=== PATIENT | female | born 1945 | race Caucasian/White ===

== ENCOUNTER 2017-04-06 16:21 | Inpatient (IN) | payer SELFPAY ==
[~2017-04-06] VITALS: Ht 157.5 cm; Wt 62.6 kg
[2017-04-06 17:28] LABS: PLATELET COUNT 214 x10^3mcL (130-400); RED CELL DISTRIBUTION WIDTH 13.9 % (11.5-14.5)
[2017-04-06 17:30] LABS: BASOPHIL % 0 % (0-2)
[2017-04-06 17:35] LABS: UA SPECIFIC GRAVITY >=1.030 (1.005-1.035); microscopic required? YES; urine erythrocyte NEGATIVE (NEGATIVE)
[2017-04-06 17:41] LABS: CALCIUM 9.4 mg/dL (8.5-10.1); CHLORIDE SERUM 103 mmol/L (98-107); CREATININE SERUM 0.8 mg/dL (0.6-1.0); GLUCOSE SERUM 225 mg/dL (74-106); POTASSIUM SERUM 3.7 mmol/L (3.5-5.1); SODIUM SERUM 138 mmol/L (136-145)
[2017-04-06 17:55] LABS: ALBUMIN 3.7 g/dL (3.4-5.0); ALKALINE PHOSPHATASE 107 U/L (46-116); ALT/SGPT 140 U/L (14-59); AST/SGOT 217 U/L (15-37); BILIRUBIN TOTAL 1.5 mg/dL (0.20-1.00); TOTAL PROTEIN, SERUM 7.3 g/dL (6.4-8.2)
[2017-04-06 18:55] LABS: LIPASE 14838 IU/L (73-393)
[2017-04-06] MEDS ORDERED: GLUCOPHAGE XR500 MG PO (20:20)
[2017-04-06 20:52] VITALS: BP 130/68
[2017-04-06 20:56] VITALS: Ht 157.5 cm; Wt 62.6 kg
[2017-04-06 21:45] LABS: MAGNESIUM 2.4 mg/dL (1.8-2.4)
[2017-04-06 21:51] LABS: T3 TOTAL 1.26 ng/mL
[2017-04-06 21:52] LABS: CHOLESTEROL/HDL RATIO 5.6; FREE T4 1.33 ng/dL (0.76-1.46); FREE THYROXINE INDEX 3.8 ug/dL (1.4-4.5); T4(THYROXINE) 11.3 ug/dL (4.7-13.3)
[2017-04-07 07:45] LABS: BASOPHIL % 0.4 % (0-2); PLATELET COUNT 171 x10^3mcL (130-400); RED CELL DISTRIBUTION WIDTH 13.6 % (11.5-14.5)
[2017-04-07 08:27] LABS: CALCIUM 8.1 mg/dL (8.5-10.1); CARBON DIOXIDE 23.2 mmol/L (21-32); CHLORIDE SERUM 111 mmol/L (98-107); CREATININE SERUM 0.8 mg/dL (0.6-1.0); GLUCOSE SERUM 138 mg/dL (74-106); POTASSIUM SERUM 3.9 mmol/L (3.5-5.1); SODIUM SERUM 146 mmol/L (136-145)
[2017-04-07 09:19] VITALS: BP 117/51
[2017-04-07 14:40] VITALS: BP 110/50
[2017-04-07 16:28] VITALS: BP 112/53
[2017-04-07 21:25] VITALS: BP 113/57
[2017-04-08 05:27] VITALS: BP 125/53
[2017-04-08 06:41] LABS: BASOPHIL % 0.4 % (0-2); PLATELET COUNT 151 x10^3mcL (130-400); RED CELL DISTRIBUTION WIDTH 13.9 % (11.5-14.5)
[2017-04-08 07:03] LABS: ALKALINE PHOSPHATASE 113 U/L (46-116); ALT/SGPT 399 U/L (14-59); AST/SGOT 244 U/L (15-37); BILIRUBIN TOTAL 1.1 mg/dL (0.20-1.00); CALCIUM 8.3 mg/dL (8.5-10.1); CARBON DIOXIDE 23.8 mmol/L (21-32); CHLORIDE SERUM 107 mmol/L (98-107); CREATININE SERUM 0.8 mg/dL (0.6-1.0); GLUCOSE SERUM 145 mg/dL (74-106); LIPASE 1146 IU/L (73-393); POTASSIUM SERUM 3.5 mmol/L (3.5-5.1); SODIUM SERUM 141 mmol/L (136-145)
[2017-04-08 07:10] LABS: ALBUMIN 2.5 g/dL (3.4-5.0); TOTAL PROTEIN, SERUM 5.8 g/dL (6.4-8.2)
[2017-04-08 09:13] VITALS: BP 104/41
[2017-04-08 13:29] VITALS: BP 141/63
[2017-04-08 17:34] VITALS: BP 138/60
[2017-04-08 22:29] VITALS: BP 146/66
[2017-04-09 06:21] VITALS: BP 140/54
[2017-04-09 06:24] LABS: CALCIUM 8.3 mg/dL (8.5-10.1); CARBON DIOXIDE 24.9 mmol/L (21-32); CHLORIDE SERUM 109 mmol/L (98-107); CREATININE SERUM 0.7 mg/dL (0.6-1.0); GLUCOSE SERUM 111 mg/dL (74-106); POTASSIUM SERUM 3.4 mmol/L (3.5-5.1); SODIUM SERUM 145 mmol/L (136-145)
[2017-04-09 06:46] LABS: BASOPHIL % 0.6 % (0-2); PLATELET COUNT 160 x10^3mcL (130-400); RED CELL DISTRIBUTION WIDTH 13.4 % (11.5-14.5)
[2017-04-09 08:30] VITALS: BP 148/58
[2017-04-09 14:15] VITALS: BP 145/68
[2017-04-09 18:09] VITALS: BP 134/61
[2017-04-09 20:54] VITALS: BP 128/51
[2017-04-10 05:34] VITALS: BP 123/48
[2017-04-10 07:23] VITALS: BP 118/57
[2017-04-10 18:10] VITALS: BP 132/53
[2017-04-10 22:32] VITALS: BP 126/61
[2017-04-11 06:21] LABS: BASOPHIL % 0.3 % (0-2); PLATELET COUNT 180 x10^3mcL (130-400); RED CELL DISTRIBUTION WIDTH 13.8 % (11.5-14.5)
[2017-04-11 06:36] VITALS: BP 161/70
[2017-04-11 06:43] LABS: ALKALINE PHOSPHATASE 94 U/L (46-116); ALT/SGPT 173 U/L (14-59); AST/SGOT 47 U/L (15-37); BILIRUBIN DIRECT 0.21 mg/dL (0.0-0.2); BILIRUBIN TOTAL 0.5 mg/dL (0.20-1.00); CALCIUM 8.5 mg/dL (8.5-10.1); CARBON DIOXIDE 23.8 mmol/L (21-32); CHLORIDE SERUM 103 mmol/L (98-107); CREATININE SERUM 0.6 mg/dL (0.6-1.0); GLUCOSE SERUM 100 mg/dL (74-106); POTASSIUM SERUM 3.3 mmol/L (3.5-5.1); SODIUM SERUM 140 mmol/L (136-145); TOTAL PROTEIN, SERUM 6.3 g/dL (6.4-8.2)
[2017-04-11 06:45] LABS: ALBUMIN 2.5 g/dL (3.4-5.0)
[2017-04-11 09:09] VITALS: BP 148/64
[2017-04-11 16:58] VITALS: BP 138/76
[2017-04-11 21:59] VITALS: BP 172/76
[2017-04-11 22:22] VITALS: BP 133/60
[2017-04-12 05:43] VITALS: BP 139/62
[2017-04-12 06:52] LABS: CALCIUM 8.2 mg/dL (8.5-10.1); CARBON DIOXIDE 26.6 mmol/L (21-32); CHLORIDE SERUM 107 mmol/L (98-107); CREATININE SERUM 0.5 mg/dL (0.6-1.0); GLUCOSE SERUM 102 mg/dL (74-106); POTASSIUM SERUM 3.2 mmol/L (3.5-5.1); SODIUM SERUM 143 mmol/L (136-145)
[2017-04-12 07:05] LABS: BASOPHIL % 0.6 % (0-2); PLATELET COUNT 181 x10^3mcL (130-400); RED CELL DISTRIBUTION WIDTH 13.7 % (11.5-14.5)
[2017-04-12 10:06] VITALS: BP 145/121
[2017-04-12 10:08] VITALS: BP 155/122
[2017-04-12] MEDS ORDERED: COL100 PO (12:23)
[2017-04-12] MEDS ORDERED: APAP500 MG PO (13:01)
[2017-04-12] MEDS ORDERED: GLUCOPHAGE XR500 MG PO (13:03)
== END 2017-04-12 17:40 | disposition home or self-care (01) | DRG 853 ==
LOC: ED 16:21 → MU 20:04 → DU 20:04 → EDBD 20:04 → DU 20:44 → MU 04-10 13:50
PROVIDERS: Emergency Medicine; Family Medicine; Student in an Organized Health Care Education/Training Program; Surgery; ADMIT Family Medicine
PROC: 0FB40ZZ Excision of Gallbladder, Open Approach (ICD-10-PCS; 2017-04-09)
PROC: BF141ZZ Fluoroscopy of Gallbladder, Bile Ducts and Pancreatic Ducts using Low Osmolar Contrast (ICD-10-PCS; 2017-04-09)
PROC: 0FJ44ZZ Inspection of Gallbladder, Percutaneous Endoscopic Approach (ICD-10-PCS; principal; 2017-04-09 07:30)
PROC: 0FT40ZZ Resection of Gallbladder, Open Approach (ICD-10-PCS; 2017-04-11)
DX: A41.9 Sepsis, unspecified organism (principal); E43 Unspecified severe protein-calorie malnutrition; N17.0 Acute kidney failure with tubular necrosis; K85.10 Biliary acute pancreatitis without necrosis or infection; E87.2 Acidosis; K81.2 Acute cholecystitis with chronic cholecystitis; E11.65 Type 2 diabetes mellitus with hyperglycemia; R65.20 Severe sepsis without septic shock; E80.6 Other disorders of bilirubin metabolism; E78.5 Hyperlipidemia, unspecified; Z80.3 Family history of malignant neoplasm of breast; Z88.2 Allergy status to sulfonamides
CPT/HCPCS: 82962; 83880; 84439; 94150; 97110-GP; 97116-GP; 97530-GP; C1887; C9113; J0330; J1885; J2175; J2250; J2270; J2405; J2543; J2704; J2710; J3010; J3490; J7030; Q0092; Q9967

== ENCOUNTER → 2017-04-20 | Outpatient (CLI) | payer MEDICAID ==
[~2017-04-20] MED LIST: APAP/HYDROCODON1 T13 PO; APAP500 MG PO; COL100 PO; GLUCOPHAGE XR500 MG PO; LEVOFLOXACIN250 MG PO; LIPI10 PO
== END | disposition home or self-care (01) ==
LOC: US 15:03
PROC: B54DZZZ Ultrasonography of Bilateral Lower Extremity Veins (ICD-10-PCS; principal; 2017-04-20)
PROC: B44HZZZ Ultrasonography of Bilateral Lower Extremity Arteries (ICD-10-PCS; 2017-04-20)
DX: I73.9 Peripheral vascular disease, unspecified (principal)
CPT/HCPCS: Q0092

== ENCOUNTER 2017-04-22 17:10 | Inpatient (IN) | payer MEDICAID ==
[~2017-04-22] VITALS: Ht 157.5 cm; Wt 59.9 kg
[~2017-04-22 17:10] MED LIST changes: -APAP/HYDROCODON1 T13 PO; -LEVOFLOXACIN250 MG PO; -LIPI10 PO
[2017-04-22 18:39] LABS: BASOPHIL % 0.1 % (0-2); PLATELET COUNT 399 x10^3mcL (130-400); RED CELL DISTRIBUTION WIDTH 13.3 % (11.5-14.5)
[2017-04-22 18:40] LABS: microscopic required? YES; urine erythrocyte NEGATIVE (NEGATIVE)
[2017-04-22 18:46] LABS: CALCIUM 9.2 mg/dL (8.5-10.1); CARBON DIOXIDE 26.3 mmol/L (21-32); CHLORIDE SERUM 101 mmol/L (98-107); CREATININE SERUM 0.6 mg/dL (0.6-1.0); GLUCOSE SERUM 133 mg/dL (74-106); POTASSIUM SERUM 3.7 mmol/L (3.5-5.1); SODIUM SERUM 138 mmol/L (136-145)
[2017-04-22 18:58] LABS: ALKALINE PHOSPHATASE 403 U/L (46-116); ALT/SGPT 485 U/L (14-59); AST/SGOT 555 U/L (15-37); BILIRUBIN TOTAL 2.15 mg/dL (0.20-1.00); TOTAL PROTEIN, SERUM 7.5 g/dL (6.4-8.2)
[2017-04-22 19:04] LABS: ALBUMIN 3.3 g/dL (3.4-5.0)
[2017-04-22 19:18] LABS: AMYLASE 4647 U/L (25-115)
[2017-04-22 19:39] LABS: LIPASE 42735 IU/L (73-393)
[2017-04-22 21:30] LABS: MAGNESIUM 1.9 mg/dL (1.8-2.4); PHOSPHOROUS 3.7 mg/dL (2.5-4.9)
[2017-04-22 21:30] LABS: AMPHETAMINE QUAL UR NONE DETECTED (NEG <=1000)
[2017-04-22 21:58] VITALS: BP 145/72
[2017-04-22 22:08] VITALS: Ht 157.5 cm; Wt 59.9 kg
[2017-04-23 05:25] VITALS: BP 126/58
[2017-04-23 05:45] VITALS: BP 144/67
[2017-04-23 06:25] LABS: BASOPHIL % 0.5 % (0-2); PLATELET COUNT 327 x10^3mcL (130-400); RED CELL DISTRIBUTION WIDTH 13.5 % (11.5-14.5)
[2017-04-23 06:33] LABS: CALCIUM 8.2 mg/dL (8.5-10.1); CARBON DIOXIDE 25.2 mmol/L (21-32); CHLORIDE SERUM 107 mmol/L (98-107); CREATININE SERUM 0.6 mg/dL (0.6-1.0); GLUCOSE SERUM 124 mg/dL (74-106); MAGNESIUM 1.8 mg/dL (1.8-2.4); PHOSPHOROUS 3.4 mg/dL (2.5-4.9); POTASSIUM SERUM 3.5 mmol/L (3.5-5.1); SODIUM SERUM 141 mmol/L (136-145)
[2017-04-23 09:34] VITALS: BP 153/68
[2017-04-23 17:15] VITALS: BP 120/57
[2017-04-23 21:29] VITALS: BP 137/64
[2017-04-24 05:35] VITALS: BP 123/58
[2017-04-24 07:30] LABS: BILIRUBIN DIRECT 0.43 mg/dL (0.0-0.2); BILIRUBIN TOTAL 0.8 mg/dL (0.20-1.00); TOTAL PROTEIN, SERUM 6.8 g/dL (6.4-8.2)
[2017-04-24 07:32] LABS: ALBUMIN 2.7 g/dL (3.4-5.0)
[2017-04-24 09:27] VITALS: BP 109/45
[2017-04-24 12:10] VITALS: BP 136/67
[2017-04-24 17:20] VITALS: BP 159/68
[2017-04-24 22:08] VITALS: BP 143/66
[2017-04-25 05:57] VITALS: BP 99/60
[2017-04-25 06:39] LABS: BASOPHIL % 0.3 % (0-2); PLATELET COUNT 342 x10^3mcL (130-400); RED CELL DISTRIBUTION WIDTH 13.2 % (11.5-14.5)
[2017-04-25 07:00] LABS: ALKALINE PHOSPHATASE 280 U/L (46-116); ALT/SGPT 219 U/L (14-59); AST/SGOT 54 U/L (15-37); BILIRUBIN TOTAL 0.5 mg/dL (0.20-1.00); CALCIUM 8.6 mg/dL (8.5-10.1); CARBON DIOXIDE 25.2 mmol/L (21-32); CHLORIDE SERUM 107 mmol/L (98-107); CREATININE SERUM 0.6 mg/dL (0.6-1.0); GLUCOSE SERUM 155 mg/dL (74-106); MAGNESIUM 1.9 mg/dL (1.8-2.4); PHOSPHOROUS 3.4 mg/dL (2.5-4.9); POTASSIUM SERUM 3.6 mmol/L (3.5-5.1); SODIUM SERUM 140 mmol/L (136-145); TOTAL PROTEIN, SERUM 6.2 g/dL (6.4-8.2)
[2017-04-25 07:01] LABS: ALBUMIN 2.5 g/dL (3.4-5.0)
[2017-04-25 10:12] VITALS: BP 146/67
[2017-04-25] MEDS ORDERED: LIPI10 PO (15:34)
[2017-04-25] MEDS ORDERED: LEVOFLOXACIN250 MG PO (15:35)
[2017-04-25 15:59] VITALS: BP 146/67
[2017-04-25] MEDS ORDERED: APAP/HYDROCODON1 T13 PO (16:22)
== END 2017-04-25 17:35 | disposition home or self-care (01) | DRG 282 ==
LOC: ED 17:10 → MU 20:13 → DU 20:13 → MU 04-23 06:46
PROVIDERS: Emergency Medicine; Family Medicine; Internal Medicine Gastroenterology; ADMIT Family Medicine
PROC: 0F798DZ Dilation of Common Bile Duct with Intraluminal Device, Via Natural or Artificial Opening Endoscopic (ICD-10-PCS; principal; 2017-04-24 10:00)
DX: K85.10 Biliary acute pancreatitis without necrosis or infection (principal); N17.0 Acute kidney failure with tubular necrosis; E43 Unspecified severe protein-calorie malnutrition; D68.69 Other thrombophilia; E11.51 Type 2 diabetes mellitus with diabetic peripheral angiopathy without gangrene; K76.0 Fatty (change of) liver, not elsewhere classified; D64.9 Anemia, unspecified; K80.51 Calculus of bile duct without cholangitis or cholecystitis with obstruction; J98.11 Atelectasis; K57.30 Diverticulosis of large intestine without perforation or abscess without bleeding; E78.5 Hyperlipidemia, unspecified; E66.9 Obesity, unspecified; Z68.24 Body mass index [BMI] 24.0-24.9, adult; Z79.84 Long term (current) use of oral hypoglycemic drugs
CPT/HCPCS: 43262; 82962; 83880; 94150; C1769; C2625; J0295; J1815; J1956; J2175; J2250; J2405; J2704; J2920; J3010; J3490; J7030; J7042; J7120; Q0092; Q0163; Q9967

== ENCOUNTER 2017-04-30 11:44 | Emergency (ER) | payer MEDICAID ==
[~2017-04-30] VITALS: Ht 152.4 cm; Wt 58.2 kg
[~2017-04-30 11:44] MED LIST changes: +APAP/HYDROCODON1 T13 PO; +LEVOFLOXACIN250 MG PO; +LIPI10 PO
[2017-04-30 14:03] LABS: BASOPHIL % 0.3 % (0-2); PLATELET COUNT 295 x10^3mcL (130-400); RED CELL DISTRIBUTION WIDTH 13.1 % (11.5-14.5)
[2017-04-30 14:18] LABS: ALKALINE PHOSPHATASE 166 U/L (46-116); ALT/SGPT 61 U/L (14-59); AMYLASE 53 U/L (25-115); AST/SGOT 21 U/L (15-37); BILIRUBIN TOTAL 0.5 mg/dL (0.20-1.00); CALCIUM 9.2 mg/dL (8.5-10.1); CARBON DIOXIDE 23.2 mmol/L (21-32); CHLORIDE SERUM 104 mmol/L (98-107); CREATININE SERUM 0.6 mg/dL (0.6-1.0); GLUCOSE SERUM 93 mg/dL (74-106); LIPASE 203 IU/L (73-393); POTASSIUM SERUM 3.3 mmol/L (3.5-5.1); SODIUM SERUM 135 mmol/L (136-145); TOTAL PROTEIN, SERUM 7.4 g/dL (6.4-8.2)
[2017-04-30 14:19] LABS: ALBUMIN 3.3 g/dL (3.4-5.0)
[2017-04-30 15:33] VITALS: BP 139/76
== END 2017-04-30 15:33 | disposition home or self-care (01) ==
LOC: ED 11:44
PROVIDERS: Emergency Medicine
DX: R10.13 Epigastric pain (principal); E11.9 Type 2 diabetes mellitus without complications; E78.00 Pure hypercholesterolemia, unspecified; Z79.84 Long term (current) use of oral hypoglycemic drugs; Z88.2 Allergy status to sulfonamides
CPT/HCPCS: 83880; J1885

== ENCOUNTER → 2017-05-15 | Outpatient (CLI) | payer MEDICAID ==
[2017-05-15 09:56] LABS: ALBUMIN 3.7 g/dL (3.4-5.0); BILIRUBIN DIRECT 0.18 mg/dL (0.0-0.2); BILIRUBIN TOTAL 0.44 mg/dL (0.20-1.00); TOTAL PROTEIN, SERUM 7.8 g/dL (6.4-8.2)
== END | disposition home or self-care (01) ==
LOC: LB 08:42
PROVIDERS: Internal Medicine Gastroenterology
DX: R10.9 Unspecified abdominal pain (principal)

== ENCOUNTER 2017-05-22 06:31 | Day surgery (SDC) | payer MEDICAID ==
[~2017-05-22] VITALS: Ht 157.5 cm; Wt 60.3 kg
[2017-05-22 07:05] VITALS: BP 151/73
[2017-05-22 07:06] LABS: BASOPHIL % 0.8 % (0-2); PLATELET COUNT 304 x10^3mcL (130-400); RED CELL DISTRIBUTION WIDTH 13.2 % (11.5-14.5)
[2017-05-22 07:20] LABS: CALCIUM 8.8 mg/dL (8.5-10.1); CHLORIDE SERUM 100 mmol/L (98-107); CREATININE SERUM 0.7 mg/dL (0.6-1.0); GLUCOSE SERUM 118 mg/dL (74-106); POTASSIUM SERUM 3.1 mmol/L (3.5-5.1); SODIUM SERUM 142 mmol/L (136-145)
[2017-05-22 10:11] VITALS: BP 133/68
== END 2017-05-22 10:10 | disposition home or self-care (01) ==
LOC: GI 06:31 → OR 07:30 → GI 10:10
PROVIDERS: Internal Medicine Gastroenterology
PROC: 0FC98ZZ Extirpation of Matter from Common Bile Duct, Via Natural or Artificial Opening Endoscopic (ICD-10-PCS; principal; 2017-05-22 07:30)
PROC: 0FPB8DZ Removal of Intraluminal Device from Hepatobiliary Duct, Via Natural or Artificial Opening Endoscopic (ICD-10-PCS; 2017-05-22 07:30)
DX: K91.86 Retained cholelithiasis following cholecystectomy (principal); E87.6 Hypokalemia; I10 Essential (primary) hypertension; E11.9 Type 2 diabetes mellitus without complications
CPT/HCPCS: 43260; C1769; J1610; J1885; J2405; J2704; J2765; J7030; Q0092; Q9967

== ENCOUNTER 2017-05-22 19:35 | Emergency (ER) | payer MEDICAID ==
[2017-05-22 21:25] LABS: BASOPHIL % 0.2 % (0-2); PLATELET COUNT 239 x10^3mcL (130-400); RED CELL DISTRIBUTION WIDTH 12.9 % (11.5-14.5)
[2017-05-22 22:23] VITALS: BP 107/62
[2017-05-22 22:51] LABS: UA SPECIFIC GRAVITY 1.025 (1.005-1.035)
[2017-05-22 22:52] LABS: microscopic required? YES
[2017-05-22 22:53] LABS: urine erythrocyte NEGATIVE (NEGATIVE)
== END 2017-05-22 22:21 | disposition home or self-care (01) ==
LOC: ED 19:35
PROVIDERS: Emergency Medicine Emergency Medical Services
DX: K91.89 Other postprocedural complications and disorders of digestive system (principal); R11.0 Nausea; R50.9 Fever, unspecified; R10.9 Unspecified abdominal pain; E11.9 Type 2 diabetes mellitus without complications; E78.00 Pure hypercholesterolemia, unspecified; Z79.1 Long term (current) use of non-steroidal anti-inflammatories (NSAID); Z79.84 Long term (current) use of oral hypoglycemic drugs; Z79.899 Other long term (current) drug therapy; Z88.1 Allergy status to other antibiotic agents; Z88.2 Allergy status to sulfonamides; Z90.49 Acquired absence of other specified parts of digestive tract
CPT/HCPCS: 36415